=== PATIENT | female | born 1975 | race African-American/Black ===

== ENCOUNTER 2016-08-29 13:55 | Emergency (ER) | payer OTHER ==
[~2016-08-29] VITALS: Ht 167.6 cm; Wt 79.8 kg
[~2016-08-29 13:55] MED LIST: ARTHROTEC 75 MG1 TAB PO; ATIVAN0.5 MG PO; CLONAZEPAM0.5 M2 PO; CYCLOBENZAPRINE10 MG PO; DEPAKOTE500 M1 PO; DIVALPROEX SOD250 M2 PO; FIORICET 325 MG1 TAB PO; FIORICET 50-301 EACH PO; FLEXERIL10 MG PO; IBUPROFEN600 MG PO; KLONOPIN0.5 MG PO; LIDODERM 5% PAT1 PAT TOP; MEDROL DOSEPAK1 PAC PO; MELOXICAM15 MG PO; PANTOPRAZOLE SO40 M1 PO; PERCOCET 325 MG1 TA2 PO; SERTRALINE HCL50 MG PO; TRAZODONE HCL150 M1 PO; VICODIN5-300 PO; ZOFRAN ODT4 M1 PO
[2016-08-29 14:05] VITALS: BP 110/78
--- NOTE | 2016-08-29 14:55 | ED GENERAL ADULT ---
History of Present Illness General Chief Complaint: Low Back Pain/Injury Stated Complaint: BACK PAIN AND ANXIETY Source: patient Exam Limitations: no limitations Vital Signs & Intake/Output Vital Signs & Intake/Output Vital Signs Date Time Temp Pulse Resp B/P Pulse O2 O2 Flow FiO2 Ox Delivery Rate 08/29 1405 97.8 79 18 110/78 97 Room Air Allergies Coded Allergies: Influenza Virus Vaccines (Severe, FACIAL SWELLING 11/21/15) hydrocodone (Mild, "MAKES ME FEEL WEIRD" 11/21/15) diphenhydramine (From BENADRYL) (JITTERY, SHAKE 11/21/15) Reconcile Medications Butalb/Acetaminophen/Caffeine (Fioricet 50-300-40 MG Capsule) 1 EACH CAPSULE 1 TAB PO Q4-6 PRN PAIN Clonazepam 0.5 MG TABLET 1 TAB PO PRN ANXIETY (Reported) Clonazepam (Klonopin) 0.5 MG TABLET 1 TAB PO BIDP PRN ANXIETY Cyclobenzaprine HCl 10 MG TABLET 1 TAB PO QPM PRN MUSCLE SPASMS Divalproex Sodium 250 MG TABLET.DR 1 TAB PO BID MENTAL HEALTH (Reported) Divalproex Sodium (Depakote) 500 MG TABLET.DR 2 TAB PO QPM MENTAL HEALTH ( Reported) Naproxen (Naprosyn) 500 MG TABLET 1 TAB PO BID PRN PAIN/INFLAMMATION Ondansetron (Zofran Odt) 4 MG TAB.RAPDIS 1 TAB PO Q6 PRN NAUSEA Pantoprazole Sodium 40 MG TABLET.DR 1 TAB PO DAILY GI (Reported) Sertraline HCl 50 MG TABLET 1 TAB PO DAILY MENTAL HEALTH (Reported) Trazodone HCl 150 MG TABLET 1 TAB PO QPM SLEEP (Reported) Triage Note: C/O SPASMS IN BOTH LEGS AND PELVIC AREA X 2 WEEKS STATES SHE IS SUPPOSED TO HAVE 2 PARTIAL KNEE REPLACEMNTS SOON. Triage Nurses Notes Reviewed? yes Onset: Gradual Duration: worse persistent since (2 DAYS) Timing: recent history Injury Environment: home Severity: moderate Severity Numbers: 8 Modifying Factors: Improves With: immobilization. Worsens With: movement. : No Patient currently breastfeeds: No HPI: Patient is a 41-year-old female presenting to the emergency department with chief complaint of low back pain that radiates down to the knees bilaterally. Symptoms have been going on for "a while" worse the past 2 days. Denies any new injury. Denies any urinary incontinence or retention. Symptoms currently moderate. She's been taking Tylenol at home with little relief. She reports she is scheduled to have bilateral knee replacements but has not gone through that yet. She just reports that her anxiety has been acting up because she is currently in the middle of moving and her sons grandmother just . Denies any suicidal or homicidal ideation. She does take daily medications for anxiety but reports that she ran out of her Klonopin. Denies any nausea vomiting fevers or chills chest pain or shortness of breath. Denies any hematuria. No history of kidney stones. Denies abdominal pain. (DAYNE MONTENEGRO) Past History Travel History Traveled to [place] past 21 day No Medical History Any Pertinent Medical History? see below for history Neurological: migraine EENT: NONE Cardiovascular: NONE Respiratory: NONE Gastrointestinal: NONE Hepatic: NONE Renal: NONE Musculoskeletal: chronic back pain, CHRONIC PAIN TO LEGS AND KNEES Psychiatric: anxiety Endocrine: NONE Blood Disorders: NONE Cancer(s): NONE PAY AGENT/Reproductive: NONE Surgical History Surgical History: Psychosocial History What is your primary language Upper Sorbian Tobacco Use: Never used ETOH Use: occasional use Family History Hx Contributory? No (DAYNE MONTENEGRO) Review of Systems Review of Systems Constitutional: Reports: no symptoms. Comments Review of systems: See HPI, All other systems negative. Constitutional, no chills fever or weight loss HEENT: No visual changes no sore throat no congestion Cardiovascular: No chest pain ,palpitation Skin, no jaundice no rashes Respiratory: No dyspnea cough sputum or hemoptysis GI: No nausea no vomiting : No dysuria No hematuria Muscle skeletal: no neck pain, Neurologic: No numbness no confusion Psych: Positive stress, anxiety, denies increased depression Heme/endocrine: No bruising no bleeding no polyuria or polydipsia Immunology: No splenectomy or history of AIDS (DAYNE MONTENEGRO) Physical Exam Physical Exam General Appearance: well developed/nourished, no apparent distress, alert, awake , comfortable Comments: Well-developed well-nourished person in no acute distress HEENT: . Pupils equally round and reactive to light and accommodation. Nose is atraumatic. Neck: Normal inspection, no C-spine tenderness. Full range of motion. Back: Tender palpation in the lumbar paraspinal region, no bony tenderness throughout entire spine. No CVA tenderness bilaterally. Near full range of motion somewhat limited secondary to pain. Negative modified straight leg raise bilaterally. Cardiovascular: Regular rate and rhythms no murmurs rubs or gallops, normal JVP Respiratory: Chest nontender. No respiratory distress.breath sounds clear to auscultation bilaterally Abdomen: Soft, nontender nondistended, no appreciable organomegaly. Normal bowel sounds. No ascites Extremity: No edema Neuro: Alert oriented x3, motor sensory normal, patellar reflexes are 2+ bilaterally. Skin: No appreciable rash on exposed skin, skin is warm and dry. Psych: Mood and affect is normal, memory and judgment is normal. Core Measures ACS in differential dx? No CVA/TIA Diagnosis: No Severe Sepsis Present: No Septic Shock Present: No (DAYNE MONTENEGRO) Progress Differential Diagnoses I considered the following diagnoses in my evaluation of the patient: Acute on chronic pain, sciatica, cauda equina, generalized anxiety disorder, medication refill, herniated disc, muscle strain Plan of Care: Current Medications Sig/Malvin Start time Last Medication Dose Stop Time Status Admin Ketorolac 30 MG ONE ONE 08/29 1515 UNVr Tromethamine 08/29 1516 (Toradol) Initial ED EKG: none Comments: PATIENT IS WELL-APPEARING IN NO ACUTE DISTRESS. sHE DOES NOT APPEAR ANXIOUS. lIKELY MEDICATION REFILL. pATIENT WILL BE TREATED SYMPTOMATICALLY WITH nsaidS, MUSCLE RELAXER AND GIVEN A REFILL OF HER MEDICATIONS. She is given IM Toradol here in the emergency department prior to discharge. No indication for imaging at this time. Likely chronic issue. No signs of cauda equina. (DAYNE MONTENEGRO) Departure Departure Time of Disposition: 1502 Disposition: HOME OR SELF CARE Condition: Stable Clinical Impression Primary Impression: Back pain Qualifiers: Back pain location: low back pain Chronicity: chronic Back pain laterality: bilateral Sciatica presence: with sciatica Sciatica laterality: bilateral sciatica Qualified Codes: M54.42 - Lumbago with sciatica, left side; M54.41 - Lumbago with sciatica, right side; G89.29 - Other chronic pain Secondary Impressions: Anxiety Referrals: SAMANTHA BUSTILLO MD (PCP/Family) Additional Instructions: Follow-up with your primary care physician scheduled for next month. Take Flexeril as prescribed for muscle spasms, use naproxen as prescribed to help with pain and inflammation. Take Klonopin as prescribed for anxiety. Return for worsening symptoms or concerns. Departure Forms: Customer Survey General Discharge Information Prescriptions: Current Visit Scripts Cyclobenzaprine HCl 1 TAB PO QPM PRN MUSCLE SPASMS #10 TAB Clonazepam (Klonopin) 1 TAB PO BIDP PRN ANXIETY #10 TAB Naproxen (Naprosyn) 1 TAB PO BID PRN PAIN/INFLAMMATION #20 TAB (DAYNE MONTENEGRO) PA/VALET PARKER Co-Sign Statement Statement: ED Attending supervision documentation- [] I saw and evaluated the patient. I have also reviewed all the pertinent lab results and diagnostic results. I agree with the findings and the plan of care as documented in the PA's/VALET PARKER's documentation. [X] I have reviewed the ED Record and agree with the PA's/VALET PARKER's documentation. [] Additions or exceptions (if any) to the PAs/VALET PARKER's note and plan are summarized below: [] (ALEC PHAN,ALMA) Critical Care Note Critical Care Note Critical Care Time: non-applicable (DAYNE MONTENEGRO)
[2016-08-29] MEDS ORDERED: KLONOPIN0.5 M1 PO (15:04)
[2016-08-29] MEDS ORDERED: CYCLOBENZAPRINE10 M1 PO (15:04)
[2016-08-29] MEDS ORDERED: NAPROSYN500 M1 PO (15:04)
== END 2016-08-29 15:16 ==
LOC: ERH 13:55
DX: M54.5 Low back pain (principal)
CPT/HCPCS: 96372; J1885

== ENCOUNTER 2016-11-06 22:28 | Emergency (ER) | payer OTHER ==
[~2016-11-06] VITALS: Ht 167.6 cm; Wt 72.6 kg
[~2016-11-06 22:28] MED LIST changes: +CYCLOBENZAPRINE10 M1 PO; +KLONOPIN0.5 M1 PO; +NAPROSYN500 M1 PO
[2016-11-06 22:33] VITALS: BP 101/68
--- NOTE | 2016-11-06 23:46 | ED HEAD/FACIAL INJ COMPLAINT ---
History of Present Illness General Chief Complaint: Laceration Procedure Stated Complaint: LAC TO L CHEEK Source: patient, old records Exam Limitations: no limitations Vital Signs & Intake/Output Vital Signs & Intake/Output Vital Signs Date Time Temp Pulse Resp B/P B/P Pulse O2 O2 Flow FiO2 Mean Ox Delivery Rate 11/06 2233 98.1 100 15 101/68 100 Room Air ED Intake and Output 11/07 0000 11/06 1200 Intake Total Output Total Balance Patient 160 lb Weight Weight Reported by Patient Measurement Method Allergies Coded Allergies: Influenza Virus Vaccines (Severe, FACIAL SWELLING 11/21/15) hydrocodone (Mild, "MAKES ME FEEL WEIRD" 11/21/15) diphenhydramine (From BENADRYL) (JITTERY, SHAKE 11/21/15) Reconcile Medications Butalb/Acetaminophen/Caffeine (Fioricet 50-300-40 MG Capsule) 1 EACH CAPSULE 1 TAB PO Q4-6 PRN PAIN Clonazepam 0.5 MG TABLET 1 TAB PO PRN ANXIETY (Reported) Clonazepam (Klonopin) 0.5 MG TABLET 1 TAB PO BIDP PRN ANXIETY Cyclobenzaprine HCl 10 MG TABLET 1 TAB PO QPM PRN MUSCLE SPASMS Divalproex Sodium 250 MG TABLET.DR 1 TAB PO BID MENTAL HEALTH (Reported) Divalproex Sodium (Depakote) 500 MG TABLET.DR 2 TAB PO QPM MENTAL HEALTH ( Reported) Ibuprofen 800 MG TABLET 1 TAB PO TID PAIN Naproxen (Naprosyn) 500 MG TABLET 1 TAB PO BID PRN PAIN/INFLAMMATION Ondansetron (Zofran Odt) 4 MG TAB.RAPDIS 1 TAB PO Q6 PRN NAUSEA Pantoprazole Sodium 40 MG TABLET.DR 1 TAB PO DAILY GI (Reported) Sertraline HCl 50 MG TABLET 1 TAB PO DAILY MENTAL HEALTH (Reported) Trazodone HCl 150 MG TABLET 1 TAB PO QPM SLEEP (Reported) Triage Note: PT TO ED FOR LAC TO L CHEEK, BLEEDING CONTROLLED ON ARRIVAL, PT ADMITS TO SMOKING MARIJUANA AND "A LOT OF 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 Triage Nurses Notes Reviewed? yes Onset: Abrupt Severity: mild Severity Numbers: 4 Location: frontal Method of Injury: direct blow Loss of Consciousness: no loss of consciousness Associated Symptoms: denies : No Patient currently breastfeeds: No HPI: 41-year-old female presents status post sustaining injury to her left cheek when she states she walked into a cabinet. The patient appears to be intoxicated on arrival states she had 2 drinks this evening. The injury occurred just prior to arrival there is no loss of consciousness no other injury. Tetanus is up-to- date per the patient. She has any neck or back pain no headache vision changes dental trauma or epistaxis. She is not taken anything for her symptoms no modifying factors or associated symptoms otherwise pain is mild aching nonradiating (AD SCOTT) Past History Travel History Traveled to [place] past 21 day No Medical History Any Pertinent Medical History? 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 No (AD SCOTT) Review of Systems Review of Systems Constitutional: Reports: no symptoms. All Other Systems: Reviewed and Negative Comments Review of systems: See HPI, All other systems negative. Constitutional, no chills no fever, no malaise HEENT: No visual changes no sore throat no congestion Cardiovascular: No chest pain , no palpitation Skin: no rashes, no change in skin Respiratory: No dyspnea no cough no sputum GI: No nausea no vomiting, no diarrhea, : No dysuria Muscle skeletal: No joint pain, no joint swelling, no back pain, no neck pain, Neurologic: No numbness no confusion, headache Psych: No stress Heme/endocrine: No bruising Immunology: No lymphadenopathy (AD SCOTT) Physical Exam Physical Exam General Appearance: well developed/nourished, no apparent distress, alert Cranial Nerves: normal hearing, normal speech, PERRL Comments: Well-developed well-nourished patient in no apparent distress. Head/Face: There is a 0.5 cm skin avulsion noted to the left maxillary region no active bleeding no surrounding ecchymosis or swelling nontender there is no orbital injury swelling or ecchymosis no entrapment, no maxillary/frontal sinus tenderness, no facial swelling Eyes: PERRL, EOMI, no conjunctival injection. No nystagmus Ear:External auditory canal and Tympanic membranes clear, no erythema, no FB. Nose: atraumatic.Normal inspection Throat: Moist mucous membranes.Pharynx normal. No dental trauma Neck: Supple, no lymphadenopathy, FROM Back: FROM Cardiovascular: Regular rate and rhythms no murmurs Respiratory: No respiratory distress. Patient speaking in full complete sentences. Breath sounds clear to auscultation bilaterally: NO W/R/R Extremities: full range of motion Neuro: awake, alert, and oriented to person, place and time. There were no obvious focal neurologic abnormalities. Skin: Warm & dry;No appreciable rash on exposed skin Psych: Mood affect normal, normal memory normal judgment. (AD SCOTT) Progress Differential Diagnosis: facial fracture, globe injury, ICH, skull fracture Plan of Care: I discussed the patient at length that given the avulsion injury there is nothing to suture bacitracin and Steri-Strips were applied advised close follow- up with her primary care physician, return anytime sooner with any concerns or signs of infection answered all of her questions and she feels comfortable plan prescription for ibuprofen provided cleared for discharge (AD SCOTT) Departure Departure Time of Disposition: 2347 Disposition: HOME OR SELF CARE Condition: Stable Clinical Impression Primary Impression: Skin avulsion Referrals: SAMANTHA BUSTILLO MD (PCP/Family) Additional Instructions: THIS WOUND WILL HEAL ON ITS OWN. APPLY bacitracin daily. Return with any concerns or signs of infection redness warm swelling discharge fever or chills Departure Forms: Customer Survey General Discharge Information Prescriptions: Current Visit Scripts Ibuprofen 1 TAB PO TID #30 TAB (AD SCOTT) PA/SENIOR BUSINESS INTELLIGENCE ANALYST Co-Sign Statement Statement: ED Attending supervision documentation- [] I saw and evaluated the patient. I have also reviewed all the pertinent lab results and diagnostic results. I agree with the findings and the plan of care as documented in the PA's/SENIOR BUSINESS INTELLIGENCE ANALYST's documentation. x I have reviewed the ED Record and agree with the PA's/SENIOR BUSINESS INTELLIGENCE ANALYST's documentation. [] Additions or exceptions (if any) to the PAs/SENIOR BUSINESS INTELLIGENCE ANALYST's note and plan are summarized below: [] (DANIA PHAN,HOWARD)
[2016-11-06] MEDS ORDERED: IBUPROFEN800 M1 PO (23:53)
== END 2016-11-07 00:01 ==
LOC: ERH 22:28
DX: S01.412A Laceration without foreign body of left cheek and temporomandibular area, initial encounter (principal); X58.XXXA Exposure to other specified factors, initial encounter

== ENCOUNTER 2017-01-21 19:30 | Emergency (ER) | payer OTHER ==
[~2017-01-21] VITALS: Ht 167.6 cm; Wt 82.1 kg
[~2017-01-21 19:30] MED LIST changes: +IBUPROFEN800 M1 PO
--- NOTE | 2017-01-21 20:26 | ED GENERAL ADULT ---
History of Present Illness General Chief Complaint: Nausea, Vomiting, Diarrhea Stated Complaint: NAUSEA Source: patient Exam Limitations: no limitations Vital Signs & Intake/Output Vital Signs & Intake/Output Vital Signs Date Time Temp Pulse Resp B/P B/P Pulse O2 O2 Flow FiO2 Mean Ox Delivery Rate 01/21 2206 98.4 64 17 106/69 100 Room Air 01/21 1944 98.0 62 18 101/67 100 Room Air ED Intake and Output 01/22 0000 01/21 1200 Intake Total Output Total Balance Patient 181 lb Weight Weight Reported by Patient Measurement Method Allergies Coded Allergies: Influenza Virus Vaccines (Severe, FACIAL SWELLING 11/21/15) hydrocodone (Mild, "MAKES ME FEEL WEIRD" 11/21/15) diphenhydramine (From BENADRYL) (SIENNA SHAKE 11/21/15) Reconcile Medications Cholecalciferol (Vitamin D3) (Vitamin D) (Unknown Strength) TABLET (Unknown Dose) PO DAILY SUPPLEMENT (Reported) Clonazepam 0.5 MG TABLET 1 TAB PO BIDP PRN ANXIETY Trazodone HCl 150 MG TABLET 1 TAB PO QPM PRN INSOMNIA ZINC (Unknown Strength) TABLET (Unknown Dose) PO DAILY SUPPLEMENT (Reported) Triage Note: PT TO ED C/O NAUSEA FOR 4 DAYS "I DON'T KNOW IF IT'S THE HEAT OR MY ACID RELUX?" PT ALSO REQUEST RX REFILLS: TRAZODONE 150 MG, DEPAKOTE 1200 MG, SERTALINE 100 MG, KLONOPIN 0.5 MG PRN "I FEEL MY ANXIETY ALL OVER THE PLACE" Triage Nurses Notes Reviewed? yes Onset: Gradual Duration: week(s): (1) Timing: recent history Injury Environment: home Severity: moderate Severity Numbers: 5 : No Patient currently breastfeeds: No HPI: Patient is a 41-year-old female with history of depression, anxiety, acid reflux presenting to the emergency department with chief complaint of worsening acid reflux and past week or so. Short she is to be on a prescription strength acid reflux medication, unsure of what the name was, has been off it for the past 2 years. Eating pasta makes her symptoms worse. Denies any palpitations or shortness of breath. She does report that she's had intermittent diarrhea over the past one week. Stool is loose. Denies blood in the stool. Reports burning in her throat. Denies chest pain. No abdominal pain. Denies any urinary symptoms. She usually takes [id number] Zantac as needed for her acid reflux symptoms, has not been working over the past couple days. She is also here for medication refill. Reports that she ran out of her sertraline, Depakote, trazodone and clonazepam about 10 days ago, in between primary care physicians right now, next appointment is on February 10. reports symptoms worse with eating. long standing hx of acid reflux. no sick contacts or travel. (DAYNE MONTENEGRO) Past History Travel History Traveled to [place] past 21 day No Medical History Any Pertinent Medical History? 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 No (DAYNE MONTENEGRO) Review of Systems Review of Systems Constitutional: Reports: no symptoms. Comments Review of systems: See HPI, All other systems negative. Constitutional, no chills fever or weight loss HEENT: No visual changes no sore throat no congestion Cardiovascular: No chest pain ,palpitation , orthopnea or ankle swelling Skin, no jaundice no rashes Respiratory: No dyspnea cough sputum or hemoptysis GI: Positive nausea, no vomiting, positive diarrhea : No dysuria No hematuria Muscle skeletal: no back pain, no neck pain, Neurologic: No numbness no headaches Psych: No stress anxiety or depression,. Heme/endocrine: No bruising no bleeding no polyuria or polydipsia Immunology: No splenectomy or history of AIDS (DAYNE MONTENEGRO) Physical Exam Physical Exam General Appearance: well developed/nourished, no apparent distress, alert, awake , comfortable Comments: Well-developed well-nourished person in no acute distress HEENT: Pupils equally round and reactive to light and accommodation. Nose is atraumatic. Pharynx normal. No swelling or edema. Neck: Normal inspection Cardiovascular: Regular rate and rhythms no murmurs rubs or gallops, normal JVP Respiratory: Chest nontender. No respiratory distress.breath sounds clear to auscultation bilaterally Abdomen: Soft, mildly tender to palpation in the epigastric region, no rebound or guarding, nondistended, no appreciable organomegaly. Normal bowel sounds. No ascites Extremity: No edema Neuro: Alert oriented x3 Skin: No appreciable rash on exposed skin, skin is warm and dry. Psych: Mood and affect is normal, memory and judgment is normal. Core Measures ACS in differential dx? No CVA/TIA Diagnosis: No Severe Sepsis Present: No Septic Shock Present: No (JAKUB NICOLE,DAYNE) Progress Differential Diagnoses I considered the following diagnoses in my evaluation of the patient: Acid reflux, medication noncompliance, gastritis, viral syndrome, gastroenteritis, colitis, pancreatitis, cholecystitis Plan of Care: Orders Procedure Date/time Status LIPASE 01/22 2040 Complete COMPREHENSIVE METABOLIC PANEL 01/22 2040 Complete CBC WITHOUT DIFFERENTIAL 01/22 2040 Complete URINE 01/21 1935 Complete URINALYSIS 01/21 1935 Complete Laboratory Tests 01/21/172103: Urine Color YEL, Urine Clarity CLEAR, Urine pH 6.0, Ur Specific Alba 1.025, Urine Protein NEG, Urine Ketones NEG, Urine Nitrite NEG, Urine Bilirubin NEG, Urine Urobilinogen 1.0, Ur Leukocyte Esterase NEG, Ur Microscopic EXAM NOT REQUIRED, Urine Hemoglobin NEG, Urine Glucose NEG, Urine Test NEGATIVE 01/21/172050: Anion Gap 8, Estimated GFR > 60, BUN/Creatinine Ratio 28.8 H, Glucose 88, Calcium 9.5, Total Bilirubin 0.2, AST 17, ALT 22, Alkaline Phosphatase 48, Total Protein 6.5, Albumin 3.7, Globulin 2.8, Albumin/Globulin Ratio 1.3, Lipase 172, CBC w Diff NO MAN DIFF REQ, RBC 3.33 L, MCV 102.9 H, MCH 34.4 H, RDW 14.6 H, MPV 8.5, Gran % 33.6 L, Lymphocytes % 52.4 H, Monocytes % 8.8, Eosinophils % 4.6, Basophils % 0.6, Absolute Granulocytes 2.4, Absolute Lymphocytes 3.8 H, Absolute Monocytes 0.6, Absolute Eosinophils 0.3, Absolute Basophils 0, PUBS MCHC 33.4 Initial ED EKG: none Comments: Patient reports mild improvement after GI cocktail. She was informed of all lab work results. Patient will follow up with PCP. Prescribed short-term course of medications that she supposed to be on. Unable to verify medications this evening secondary to her pharmacy being closed. I do not feel comfortable starting prescriptions for Zoloft and Depakote as they usually need to be titrated. Patient will follow up with her primary care physician. She's been off these medications for over 10 days. (DAYNE MONTENEGRO) Departure Departure Time of Disposition: 2156 Disposition: HOME OR SELF CARE Condition: Stable Clinical Impression Primary Impression: Acid reflux Qualifiers: Esophagitis presence: esophagitis presence not specified Qualified Code: K21.9 - Gastro-esophageal reflux disease without esophagitis Secondary Impressions: Medication refill Referrals: VICKI REYNAGA/RYAN-KERON,MG (PCP/Family) Additional Instructions: Follow-up with your primary care physician return for worsening symptoms or concerns. Take medications as prescribed. Departure Forms: Customer Survey General Discharge Information Prescriptions: Current Visit Scripts Trazodone HCl 1 TAB PO QPM PRN INSOMNIA #7 TAB Clonazepam 1 TAB PO BIDP PRN ANXIETY #10 TAB (DAYNE MONTENEGRO) PA/NUCLEAR FUELS RESEARCH ENGINEER Co-Sign Statement Statement: ED Attending supervision documentation- [] I saw and evaluated the patient. I have also reviewed all the pertinent lab results and diagnostic results. I agree with the findings and the plan of care as documented in the PA's/NUCLEAR FUELS RESEARCH ENGINEER's documentation. [X] I have reviewed the ED Record and agree with the PA's/NUCLEAR FUELS RESEARCH ENGINEER's documentation. [] Additions or exceptions (if any) to the PAs/NUCLEAR FUELS RESEARCH ENGINEER's note and plan are summarized below: [] (JESSICA GUEVARA DO) Critical Care Note Critical Care Note Critical Care Time: non-applicable (DAYNE MONTENEGRO)
[2017-01-21] MEDS ORDERED: ZINC50 M2 PO (21:06)
[2017-01-21] MEDS ORDERED: VITAMIN D2000 UNI1 PO (21:07)
[2017-01-21 21:21] LABS: ABSOLUTE BASOPHIL COUNT 0 /CUMM (0.0-0.2); ABSOLUTE EOSINOPHIL COUNT 0.3 /CUMM (0.0-0.7); ABSOLUTE GRANULOCYTE CT 2.4 /CUMM (1.4-6.5); ABSOLUTE LYMPH COUNT 3.8 /CUMM (1.2-3.4); ABSOLUTE MONOCYTE COUNT 0.6 /CUMM (0.10-0.60); BASOPHIL % 0.6 % (0.0-2.0); EOSINOPHIL % 4.6 % (0-5); GRANULOCYTE % 33.6 % (42.2-75.2); HEMATOCRIT 34.3 % (37-47); MEAN CORPUSCULAR HGB 34.4 PG (27.0-31.0); MEAN CORPUSCULAR HGB CONC 33.4 G/DL (33.0-37.0); MEAN CORPUSCULAR VOLUME 102.9 FL (81.0-99.0); MEAN PLATELET VOLUME 8.5 FL (7.4-10.4); PLATELET COUNT 275 /CUMM (130-400); RBC DISTRIBUTION WIDTH 14.6 % (11.5-14.5); RED BLOOD CELL CT 3.33 /CUMM (4.20-5.40); WHITE BLOOD CELL COUNT 7.2 /CUMM (4.8-10.8)
[2017-01-21] MEDS ORDERED: TRAZODONE HCL150 M1 PO (22:01)
[2017-01-21] MEDS ORDERED: CLONAZEPAM0.5 M2 PO (22:01)
[2017-01-21 22:06] VITALS: BP 106/69
== END 2017-01-21 22:06 ==
LOC: ERH 19:30
PROVIDERS: Physician Assistant
DX: K21.9 Gastro-esophageal reflux disease without esophagitis (principal); F32.9 Major depressive disorder, single episode, unspecified; F41.9 Anxiety disorder, unspecified; M79.661 Pain in right lower leg; M79.662 Pain in left lower leg; G89.29 Other chronic pain; F17.200 Nicotine dependence, unspecified, uncomplicated
CPT/HCPCS: 81003; 81025

== ENCOUNTER 2017-02-14 16:30 | Emergency (ER) | payer OTHER ==
[~2017-02-14] VITALS: Ht 167.6 cm; Wt 78.5 kg
[~2017-02-14 16:30] MED LIST changes: +VITAMIN D2000 UNI1 PO; +ZINC50 M2 PO
[2017-02-14] MEDS ORDERED: DIVALPROEX SOD500 M3 PO (16:53)
[2017-02-14] MEDS ORDERED: SERTRALINE HCL100 MG PO (16:54)
--- NOTE | 2017-02-14 16:55 | ED GI/GU/ABDOMINAL COMPLAINT ---
History of Present Illness General Chief Complaint: Nausea, Vomiting, Diarrhea Stated Complaint: VOMITING X2 DAYS, CHILLS Source: patient Exam Limitations: no limitations Vital Signs & Intake/Output Vital Signs & Intake/Output Vital Signs Date Time Temp Pulse Resp B/P B/P Pulse O2 O2 Flow FiO2 Mean Ox Delivery Rate 02/14 1639 97.2 70 16 112/73 98 Room Air Allergies Coded Allergies: Influenza Virus Vaccines (Severe, FACIAL SWELLING 11/21/15) hydrocodone (Mild, "MAKES ME FEEL WEIRD" 11/21/15) diphenhydramine (From BENADRYL) (JITTERY, SHAKE 11/21/15) Reconcile Medications Cholecalciferol (Vitamin D3) (Vitamin D) (Unknown Strength) TABLET (Unknown Dose) PO DAILY SUPPLEMENT (Reported) Clonazepam 0.5 MG TABLET 1 TAB PO BIDP PRN ANXIETY Divalproex Sodium (Divalproex Sodium ER) 500 MG TAB.ER.24H 1 TAB PO BID ANXIETY/DEPRESSION (Reported) Ibuprofen 800 MG TABLET 1 TAB PO PRN PAIN (Reported) Sertraline HCl 100 MG TABLET 1 TAB PO DAILY MENTAL HEALTH (Reported) Tramadol HCl 50 MG TABLET 1 TAB PO PRN PAIN (Reported) Trazodone HCl 150 MG TABLET 1 TAB PO QPM PRN INSOMNIA ZINC (Unknown Strength) TABLET (Unknown Dose) PO DAILY SUPPLEMENT (Reported) Triage Note: PT TO ED FOR N/V/D X 2 DAYS, CHILLS AND HEADACHE. Triage Nurses Notes Reviewed? yes ? N Is pt currently ? No HPI: Patient is a 41-year-old female with history of depression, anxiety, acid reflux Past History Travel History Traveled to [place] past 21 day No Medical History Any Pertinent Medical History? 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 No Progress Differential Diagnosis: AAA, AMI, appendicitis, biliary colic, bowel obstruction , colon cancer, cholecystitis, diverticulitis, ectopic , endometritis, esophageal varices, gastritis, hepatitis, hernia, hemorrhoids, ischemic bowel, inflamm bowel dis, intrauterine , kidney stone, Elana-Gina tear, ovarian cyst, ovarian torsion, pancreatitis, PID/cervicitis, peptic ulcer, PUD/ GERD, perforated viscous, SBO, threatened AB, UTI/pyelo Initial ED EKG: none Departure Departure Condition: Stable Referrals: VICKI DNP/[facility] (PCP/Family) Departure Forms: Customer Survey General Discharge Information
[2017-02-14] MEDS ORDERED: TRAMADOL HCL50 M1 PO (16:56)
[2017-02-14] MEDS ORDERED: IBUPROFEN800 M1 PO (16:56)
--- NOTE | 2017-02-14 17:33 | ED HEADACHE COMPLAINT ---
History of Present Illness General Chief Complaint: Nausea, Vomiting, Diarrhea Stated Complaint: VOMITING X2 DAYS, CHILLS Source: patient Exam Limitations: no limitations Vital Signs & Intake/Output Vital Signs & Intake/Output Vital Signs Date Time Temp Pulse Resp B/P B/P Pulse O2 O2 Flow FiO2 Mean Ox Delivery Rate 02/14 1831 Room Air 02/14 1831 96.8 58 16 102/55 99 Room Air 02/14 1639 97.2 70 16 112/73 98 Room Air Allergies Coded Allergies: Influenza Virus Vaccines (Severe, FACIAL SWELLING 11/21/15) hydrocodone (Mild, "MAKES ME FEEL WEIRD" 11/21/15) diphenhydramine (From BENADRYL) (JITTERY, SHAKE 11/21/15) Reconcile Medications Butalb/Acetaminophen/Caffeine (Zebutal 50-325-40 MG Capsule) 50 MG-325 MG-40 MG CAPSULE 1 TAB PO TID PRN MIGRAINE Cholecalciferol (Vitamin D3) (Vitamin D) (Unknown Strength) TABLET (Unknown Dose) PO DAILY SUPPLEMENT (Reported) Clonazepam 0.5 MG TABLET 1 TAB PO BIDP PRN ANXIETY Divalproex Sodium (Divalproex Sodium ER) 500 MG TAB.ER.24H 1 TAB PO BID ANXIETY/DEPRESSION (Reported) Ibuprofen 800 MG TABLET 1 TAB PO PRN PAIN (Reported) Ketorolac Tromethamine 10 MG TABLET 1 TAB PO TID PRN PAIN Ondansetron HCl (Zofran) 4 MG TABLET 1 TAB PO Q6-8P PRN NAUSEA Sertraline HCl 100 MG TABLET 1 TAB PO DAILY MENTAL HEALTH (Reported) Sumatriptan Succinate (Imitrex) 50 MG TABLET 1 TAB PO AD PRN MIGRAINE TAKE ONE TAB BY MOUTH, IF NO BETTER REPEAT ONE TAB DO NOT EXCEED TWO TABS IN ONE DAY Tramadol HCl 50 MG TABLET 1 TAB PO PRN PAIN (Reported) Trazodone HCl 150 MG TABLET 1 TAB PO QPM PRN INSOMNIA ZINC (Unknown Strength) TABLET (Unknown Dose) PO DAILY SUPPLEMENT (Reported) Triage Note: PT TO ED FOR N/V/D X 2 DAYS, CHILLS AND HEADACHE. Triage Nurses Notes Reviewed? yes Onset: Gradual Duration: constant Timing: recent history Quality/Severity: severe, pressure, sharp Severity Numbers: 10 : No Patient currently breastfeeds: No HPI: Patient is a 41-year-old female with past medical history of migraine headaches who presents to emergency room with a 24-hour history of gradual onset of now bilateral temporal persistent headache. Patient has associated symptoms of sensitivity to loud noises photophobia and nausea and vomiting. Patient has been unable to tolerate by mouth since symptoms began. Denies any established neurologist. Denies any acute onset or thunderclap headache are worse headache of life. Denies any neck pain fever chills slurred speech paresthesia or blurred vision PT HAS ASSOCIATED DIZZINESS (AD TENORIO) Past History Travel History Traveled to [place] past 21 day No Medical History Any Pertinent Medical History? 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 No (AD TENORIO) Review of Systems Review of Systems Constitutional: Reports: no symptoms. Eyes: Reports: see HPI. Ears, Nose, Throat, Mouth: Reports: no symptoms. Respiratory: Reports: no symptoms. Cardiovascular: Reports: no symptoms. Gastrointestinal/Abdominal: Reports: no symptoms. Genitourinary: Reports: no symptoms. Musculoskeletal: Reports: no symptoms. Skin: Reports: no symptoms. Neurological/Psychological: Reports: see HPI. Hematologic/Endocrine: Reports: no symptoms. Endocrine: Reports: no symptoms. Immunologic/Allergic: Reports: no symptoms. All Other Systems: Reviewed and Negative (AD TENORIO) Physical Exam Physical Exam General Appearance: no apparent distress Cranial Nerves: normal hearing, normal speech, PERRL Comments: Well-developed well-nourished person in no acute distress HEENT: Normal EENT exam, extraocular motion intact, no nystagmus. Pupils equally round and reactive to light and accommodation. Nose is atraumatic. External auditory canal and Tympanic membranes clear. Pharynx normal. No swelling or edema. Neck: Supple, no lymphadenopathy, normal range of motion without pain or tenderness Back: Nontender, no CVA tenderness. Cardiovascular: Regular rate and rhythms no murmurs rubs or gallops, normal JVP Respiratory: Chest nontender. No respiratory distress.breath sounds clear to auscultation bilaterally Abdomen: Soft, nontender nondistended, no appreciable organomegaly. Normal bowel sounds. No ascites Extremity: No edema, no calf tenderness to palpation, normal and equal pulses. Neuro: Alert oriented x3, motor sensory normal, cranial nerves II through XII grossly intact. Negative Romberg negative cerebellar testing Skin: No appreciable rash on exposed skin, skin is warm and dry. Psych: Mood and affect is normal, memory and judgment is normal. Core Measures Severe Sepsis Present: No Septic Shock Present: No (AD TENORIO) Progress Differential Diagnosis: carotid dissection, cav sinus thromb, cluster ADKINS, encephalitis, IC mass/tumor, intracranial Hem., meningitis, migraine ADKINS, musculoskeletal pain, sinusitis, SSS thrombosis, subarach. Hem., tension ADKINS, temporal arteritis, TMJ syndrome, viral cephalgia Plan of Care: Current Medications Sig/Malvin Start time Last Medication Dose Stop Time Status Admin Sodium Chloride 1,000 ML BOLUS ONE 02/14 1745 AC 02/14 (Normal Saline 0.9%) 02/14 1844 1750 Patient on initial examination was in no apparent distress. Patient has NO suspicion of subarachnoidhemorrhageatthistime. Patient had unremarkable physical exam findings Reexamination patient states that she feels significantly improved patient was able to tolerate by mouth prior to discharge. Patient was strongly advised to follow up with and establish a neurologist. Upon discharge patient looks well no apparent distress and will comply with discharge instructions and had no questions. 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 On Thursday follow PU AND establishe neurologist Dr. Dunne for further evaluation treatment. Prescriptions are waiting AT [facility] pharmacy. If symptoms worsen or if YOU develop any new concerning symptom return to emergency room. Departure Forms: Customer Survey General Discharge Information Prescriptions: Current Visit Scripts Ketorolac Tromethamine 1 TAB PO TID PRN PAIN #15 TAB Ondansetron HCl (Zofran) 1 TAB PO Q6-8P PRN NAUSEA #15 TAB Butalb/Acetaminophen/Caffeine (Zebutal 50-325-40 MG Capsule) 1 TAB PO TID PRN MIGRAINE #12 TAB Sumatriptan Succinate (Imitrex) 1 TAB PO AD PRN MIGRAINE #9 TAB TAKE ONE TAB BY MOUTH, IF NO BETTER REPEAT ONE TAB DO NOT EXCEED TWO TABS IN ONE DAY (AD TENORIO) PA/DRUM ATTENDANT Co-Sign Statement Statement: ED Attending supervision documentation- [] I saw and evaluated the patient. I have also reviewed all the pertinent lab results and diagnostic results. I agree with the findings and the plan of care as documented in the PA's/DRUM ATTENDANT's documentation. [X] I have reviewed the ED Record and agree with the PA's/DRUM ATTENDANT's documentation. [] Additions or exceptions (if any) to the PAs/DRUM ATTENDANT's note and plan are summarized below: [] (ALEC PHAN,ALMA)
[2017-02-14 18:31] VITALS: BP 102/55
[2017-02-14] MEDS ORDERED: ZEBUTAL 50-3251 EACH PO (18:47)
[2017-02-14] MEDS ORDERED: ZOFRAN4 M2 PO (18:47)
[2017-02-14] MEDS ORDERED: KETOROLAC TROME10 M1 PO (18:47)
[2017-02-14] MEDS ORDERED: IMITREX50 M1 PO (18:47)
== END 2017-02-14 18:54 ==
LOC: ERH 16:30
DX: G43.909 Migraine, unspecified, not intractable, without status migrainosus (principal)
CPT/HCPCS: 96374; 96375; J1885; J2405